=== PATIENT | male | born 1925 | race Caucasian/White ===

== ENCOUNTER 2016-11-07 11:20 | Inpatient (IN) | payer MEDICARE, OTHER ==
--- NOTE | ~2016-11-07 | IDS ---
Interim Discharge Summary [facility] [address] [place]. [address] NAME: JOELLE RENDON : [birth year] STATUS : ADM IN PAT#: [id number] AGE: 89 ADM/REG DATE : 11/07/16 MR#: [id number] REPORT SERV DATE: 11/10/16 DICTATED BY: REJI MENDEZ DATE: 11/10/16 REPORT STATUS : Draft TRANSCRIBED BY: MODNaomi DATE: 11/10/16 ADMISSION DATE: 11/07/2016 DISCHARGE DATE: DATE OF INTERIM DISCHARGE: 11/10/2016. CHIEF COMPLAINT: Weakness. CONSULTS: Dr. Gallagher for Cardiology, Dr. Lorraine MCCLENDON, and Dr. Strauss for Urology. HISTORY OF HOSPITAL STAY: An 89-year-old white male with past medical history of hypertension, hypercholesterolemia, BPH, history of esophageal stricture, status post right hip fracture on 10/19/2016 that was done at [place], history of prostate CA, presenting with weakness greater than 5 days. The patient was initially at a rehab facility for his right hip fracture. Unfortunately, the patient started having weakness. During the time of presentation, the patient had a change in mental status and could not give enough history at the time of presentation. On initial workup in the ER, the patient was found to have a creatinine of 14.5 and a BUN of 201. The patient subsequently had a CT scan of the abdomen and pelvis which shows a bilateral hydronephrosis with dilated hydroureter. The patient received a Gamboa at the time of presentation as well as IV fluids. Unfortunately, the patient also developed atrial flutter at the time of hyperkalemia of 6.0, a BUN of 201, and creatinine 14.5. Cardiology was consulted and the patient had a cardioversion in the ER. The patient subsequently went to normal sinus rhythm without any complications status post cardioversion. More importantly, the patient's renal function has greatly improved with the Gamboa in place. Urology saw the patient and felt the patient could have a stricture at the prostate level. Urology recommended keeping the Gamboa until the patient decompresses his kidneys, and we will have to keep the Gamboa for quite some time until the patient will have to be re-scanned at a later time. Questionable if the patient will have some type of obstruction post bladder decompression. DIAGNOSES UPON DISCHARGE: 1. Weakness secondary to elevated BUN and creatinine/hyperkalemia. The patient has been responding well with the Gamboa and IV fluids provided by Renal. At the time of presentation, the patient had a creatinine of 14.5, and currently the patient has creatinine 1.43. In addition, the patient's hyperkalemia from 6.0 has subsequently subsided to 3.3. 2. Hyperkalemia, much improved. 3. Acute kidney injury secondary to obstruction. The patient has greatly improved with Gamboa. Continue Gamboa at this time. Management as per Urology. 4. Bilateral hydronephrosis with ureteral dilatation because of the hyperkalemia. At this time, we will continue the Gamboa to decompress the bladder as well as the hydronephrosis. More than likely, the patient will need to keep the Gamboa post discharge, and Urology to follow up. 5. Atrial flutter with hypotension, status post cardioversion. Cardiology was consulted and has signed off. The patient did well status post cardioversion. Since the patient is n.p.o., pending dysphagia eval. The patient is to continue with the metoprolol 5 mg Interim Discharge Summary [address] [address] NAME: JOELLE RENDON : [birth year] STATUS : ADM IN [facility]#: [id number] AGE: 89 ADM/REG DATE : 11/07/16 MR#: [id number] REPORT SERV DATE: 11/10/16 DICTATED BY: REJI MENDEZ DATE: 11/10/16 REPORT STATUS : Draft TRANSCRIBED BY: REMA DATE: 11/10/16 IV q.6. 6. Dysphagia, appreciate GI input. The patient will undergo a swallow eval. Questionable if the patient will undergo dilatation versus PEG placement in the future if the patient cannot maintain any adequate intake, questionable PEG will be required. 7. Hypertension, currently well controlled. 8. Hyperlipidemia. The patient is n.p.o. We will hold for statin drugs once the patient is able to take p.o. intake. 9. Hyponatremia secondary to acute kidney injury. Management as per Renal. The patient has been changed to D5W to decrease the sodium. 10.Right hip fracture, currently asymptomatic. 11.Bronchitis. The patient is being empirically treated with Rocephin and Zithromax. The patient's WBC has been steadily improving. FBAdalid/MODL Reji Mendez MD / [id number] CC: MD Delio Headley M.D.
--- NOTE | ~2016-11-07 | CN ---
Consultation Report [facility] [address] [place]. [address] NAME: JOELLE RENDON : [birth year] STATUS : ADM IN [facility]#: [id number] AGE: 89 ADM/REG DATE : 11/07/16 MR#: [id number] REPORT SERV DATE: 11/08/16 DICTATED BY: DAY GALLAGHER DATE: 11/08/16 REPORT STATUS : Draft TRANSCRIBED BY: MODL DATE: 11/08/16 CARDIOLOGY CONSULTATION DATE OF CONSULTATION: 11/07/2016 REASON FOR CONSULTATION: Atrial flutter with rapid ventricular rate and associated hypotension. HISTORY OF PRESENT ILLNESS: The patient is an 89-year-old male with no past history of coronary artery disease who reportedly had mechanical fall in early 10/2016. He had a right hip fracture and was transferred to [facility] where reportedly he underwent open reduction internal fixation. Specifics unknown. The patient subsequently was [place] [facility]. He had 5 days of reportedly progressive weakness. Reportedly, no history of fevers, chills, dyspnea or chest pain. He currently denies chest pain or dyspnea. On presentation in the emergency department, he is found to be hypotensive and severe renal failure with atrial flutter with rapid ventricular rate. He underwent emergent cardioversion in the emergency department with conversion to sinus rhythm. In the interim, he has been seen by Nephrology with no plans for dialysis. The patient has do not resuscitate/do not intubate orders in place. PAST MEDICAL HISTORY: 1. Hypertension. 2. Hyperlipidemia. 3. Benign positional vertigo. 4. History of esophageal stricture. 5. History of prostate carcinoma. ALLERGIES: MORPHINE, LASIX, AND ADHESIVE TAPE. FAMILY HISTORY: Unobtainable from the patient. SOCIAL HISTORY: No listed drug use. No alcohol. REVIEW OF SYSTEMS: Unobtainable as the patient is unable to contribute. PHYSICAL EXAMINATION: VITALS: Pulse 102, blood pressure 91/59 at time of presentation and evaluation. Saturating 93% on 2 L nasal cannula. Weight 75 kg. GENERAL: Elderly, sedated male who is unable to contribute to history or participate in exam. HEENT: Normal. NECK: Supple, no JVD or bruit, normal carotid upstroke bilaterally, no thyromegaly. LUNGS: Clear to auscultation and percussion. No wheezes, rales or rhonchi. No use of Consultation Report [facility] [id number] [place]. [address] NAME: JOELLE RENDON : [birth year] STATUS : ADM IN PAT#: [id number] AGE: 89 ADM/REG DATE : 11/07/16 MR#: [id number] REPORT SERV DATE: 11/08/16 DICTATED BY: DAY GALLAGHER DATE: 11/08/16 REPORT STATUS : Draft TRANSCRIBED BY: MODL DATE: 11/08/16 accessory muscles. CARDIOLOGY: Regular rhythm, normal S1, S2, no thrill, no murmur, rubs or gallops, normal PMI. ABDOMEN: Bowel sounds positive, soft, nontender, and nondistended. No masses or aortic bruits. No hepatosplenomegaly or hepatojugular reflux. EXTREMITIES: Trace pitting edema. Normal pulses. No clubbing or cyanosis. SKIN: Warm and dry, no significant rash. NEUROLOGIC: Alert and oriented x 3. Appropriate mood. LABORATORIES: On presentation, sodium 139, potassium 6, chloride 101, BUN 201, creatinine 14.5, glucose 174, calcium 9.3. WBC 12.6, hemoglobin 9.9, hematocrit 30.1, platelets 478,000. DIAGNOSTIC STUDIES: EKG initially on presentation, atrial flutter with rapid ventricular rate. Status post cardioversion, sinus rhythm. Current telemetry, sinus rhythm with frequent premature atrial contractions. IMPRESSION: 1. Atrial fibrillation with rapid ventricular rate-patient is status post emergent cardioversion and currently in sinus rhythm. Blood pressure is improved since conversion to sinus rhythm. Currently on oral metoprolol. 2. Acute renal failure-multifactorial, has bilateral hydronephrosis by ultrasound and urology consultation is pending. 3. Hypotension-resolved. 4. Hyperkalemia-improved. 5. Do not resuscitate/do not intubate orders. 6. Per Nephrology notes, no plans for dialysis. In the interim, the patient's creatinine has improved to 5.44 with hydration. Potassium is improved to 4.7. We will continue beta-gilbert for now. Should the patient develop recurrent atrial flutter, we will initiate intravenous amiodarone loading. Echocardiogram is pending. Thank you for the opportunity to see the patient in consultation. We will continue to follow the patient with you. CSL/MODL Mari Gallagher M.D. / [id number] CC: Consultation Report [address] [place]. [address] NAME: JOELLE RENDON : [birth year] STATUS : ADM IN PAT#: [id number] AGE: 89 ADM/REG DATE : 11/07/16 MR#: [id number] REPORT SERV DATE: 11/08/16 DICTATED BY: DAY GALLAGHER DATE: 11/08/16 REPORT STATUS : Draft TRANSCRIBED BY: REMA DATE: 11/08/16 MD Delio Headley M.D.
--- NOTE | ~2016-11-07 | CN ---
Consultation Report [facility] [place] [id number] [facility] [place]. [address] NAME: JOELLE RENDON : [birth year] STATUS : ADM IN PAT#: [id number] AGE: 89 ADM/REG DATE : 11/07/16 MR#: [id number] REPORT SERV DATE: 11/08/16 DICTATED BY: CRAIG PETERS DATE: 11/08/16 REPORT STATUS : Draft TRANSCRIBED BY: MODL DATE: 11/08/16 CONSULTATION DATE OF CONSULTATION: 11/08/2016 HISTORY OF PRESENT ILLNESS: Joelle rendon is a pleasant 89-year-old male whom we are asked to evaluate regarding esophageal stricture. This patient has had recent problems with swallowing, as he goes to swallow he has difficulty getting it out of his mouth and chokes, this was noticed by the nurses. The patient has a history of a Schatzki's ring that was dilated by Dr. Hensley in 2005. Colonoscopy at that time showed diverticular disease. EGD also showed a hiatal hernia and gastritis. He has not been seen since. The patient presented to the emergency room with weakness. He had right hip fracture on 10/19/2016, repaired at [place]. He has a history of prostate cancer. On admission, he was found to have renal failure with hydronephrosis. He has been found to have atrial flutter with hypertension, has been seen by Cardiology. CT scan on admission showed gallstones, hydronephrosis bilaterally, distal colonic stasis, and an umbilical hernia. PAST MEDICAL HISTORY: 1. Nephrolithiasis. 2. Hyperlipidemia. 3. Prostate cancer. 4. Diverticulosis. PAST SURGICAL HISTORY: Hip repair. SOCIAL HISTORY: Lives with his . He does not smoke or drink. FAMILY HISTORY: Noncontributory. REVIEW OF SYSTEMS: All systems were reviewed and negative except for that noted in history of present illness. CURRENT MEDICATIONS: Heparin, Lopressor. ALLERGIES: IV CONTRAST, NONSTEROIDALS. PHYSICAL EXAMINATION: GENERAL: He was oriented x4, in no acute distress. VITAL SIGNS: He is afebrile. Vital signs stable. LUNGS: Clear. CARDIOVASCULAR: Revealed no S3, S4. No murmurs. ABDOMEN: Revealed active bowel sounds. Soft, nontender without mass or organomegaly. Consultation Report [place] [id number] [facility] [place]. [address] NAME: JOELLE RENDON : [birth year] STATUS : ADM IN PAT#: [id number] AGE: 89 ADM/REG DATE : 11/07/16 MR#: [id number] REPORT SERV DATE: 11/08/16 DICTATED BY: CRAIG PETERS DATE: 11/08/16 REPORT STATUS : Draft TRANSCRIBED BY: MODL DATE: 11/08/16 I reviewed the EMR as well as [facility]. LABORATORY DATA: With a comprehensive metabolic profile on admission showed a creatinine 9.49, BUN is 161, potassium 5.5. Liver enzymes were normal. Basic metabolic profile today shows a creatinine of 5.44, sodium of 150. White blood count 9300. Hemoglobin 8.8, it was 9.9 on admission, it was 12 in September. Platelet count 397,000. The hemoglobin of 12 was on 09/22/2016. IMPRESSION: 1. Oropharyngeal dysphagia with concerns for aspiration. 2. History of Schatzki's ring. RECOMMENDATION: 1. N.p.o. for now. 2. Modified barium swallow, speech pathology evaluation on Thursday. Thank you for allowing us to assist in his care. I will not see him tomorrow, but I will be available as needed. Our group will see him again on Thursday. /REMA Craig Peters M.D. / [id number] CC: MD Delio Headley M.D. Vijaykurmar Patel, M.D.
--- NOTE | ~2016-11-07 | HP ---
History And Physical [address] [address] NAME: JOELLE RENDON : [birth year] STATUS : ADM [facility]#: [id number] AGE: 89 ADM/REG DATE : 11/07/16 MR#: [id number] REPORT SERV DATE: 11/07/16 DICTATED BY: REJI MENDEZ DATE: 11/07/16 REPORT STATUS : Draft TRANSCRIBED BY: MODL DATE: 11/07/16 DATE OF ADMISSION: 11/07/2016 CHIEF COMPLAINT: Weakness x5 days plus. HISTORY OF PRESENT ILLNESS: An 89-year-old white male with past medical history of hypertension, hypercholesterolemia, benign positional vertigo, history of esophageal strictures, status post right hip fracture on 10/19/2016 that was done at [place], history of prostate CA, presenting with weakness greater than five days. History was obtained from family members at bedside. Apparently, the patient does not have any living blood relatives in the area. The family at bedside are neighbors. Apparently, the patient had a fall back on 10/19/2016 that was fixed at [place]. The patient underwent a bradly through the right femur to fix a right hip fracture. The patient was then sent to [facility] for rehab. Apparently, the patient was doing quite well over the last week and he started to decline. He had intermittent bouts where he was able to communicate and interact with the staff, but unfortunately within the last 48 hours. The patient has declined significantly. According to the family members at bedside, the patient denies any history of fevers, chills, headache, shortness of breath, cough, or sputum. Denies any abdominal pain or flank pain or hematuria. PAST MEDICAL HISTORY: As above. MEDICATIONS: The patient takes, 1. Aspirin 81 mg p.o. daily. 2. Lovenox 40 mg subcu daily. 3. Zetia 10 mg p.o. daily. 4. Hydrocodone 10 one tab p.o. q.4 hours p.r.n. 5. Cozaar 25 mg p.o. daily. 6. Antivert 12.5 mg p.o. b.i.d. 7. Protonix 40 mg p.o. at bedtime. 8. Metamucil one packet p.o. daily. 9. Flomax 0.4 mg p.o. daily. 10.Triamcinolone cream topical daily. ALLERGIES: MORPHINE, LATEX, AND ADHESIVE TAPE. SOCIAL HISTORY: Unobtainable secondary to patient's obtundation. FAMILY HISTORY: Unobtainable secondary to patient's obtundation. REVIEW OF SYSTEMS: Unobtainable secondary to the patient being obtunded. PHYSICAL EXAMINATION: VITAL SIGNS: Temperature 97.8, pulse of 118, respiratory rate of 18, BP 84/54, O2 saturation 95% on room air. History And Physical [address] [address] NAME: JOELLE RENDON : [birth year] STATUS : ADM [facility]#: [id number] AGE: 89 ADM/REG DATE : 11/07/16 MR#: [id number] REPORT SERV DATE: 11/07/16 DICTATED BY: REJI MENDEZ DATE: 11/07/16 REPORT STATUS : Draft TRANSCRIBED BY: MODL DATE: 11/07/16 HEAD AND NECK: Normocephalic, atraumatic. CARDIOVASCULAR: S1, S2. Irregularly irregular. Tachycardic. LUNGS: Good air entry. Scattered rhonchi. ABDOMEN: Soft. Positive bowel sounds. Tenderness on bilateral flank. No masses were appreciated. No organomegaly. EXTREMITIES: No clubbing, cyanosis, or edema. NEUROLOGIC: The patient is awake and arousable. No focal deficit. The patient is able to follow commands. LABS: Sodium 139, potassium 6.0, chloride 101, bicarb 19, BUN 201, creatinine 14.5, glucose 174, calcium 9.3, GFR 3, total protein 6.5, albumin 2.4, globulin 4.1, total bilirubin 0.6, alkaline phosphatase 91, ALT 12, AST 15, lipase 218. WBC 12.6, hemoglobin 9.9, hematocrit 30.4, platelets 478. CT of abdomen and pelvis shows bilateral hydronephrosis and ureteral dilatation. Left perinephric edema. No calcific stones are identified within the ureter or urinary bladder. Bladder is nondistended with a catheter in place. There is minimal nonobstructing right nephrolithiasis. Left basal pleural fluid and adjacent atelectasis. Cholelithiasis with no pericholecystic inflammation. Prominent distal colonic fecal stasis. Diverticulosis with no evidence of diverticulitis. Calcific atherosclerosis. Abdominal aortic aneurysm. Fat containing umbilical hernia. Right intertrochanteric fracture with surgical fixation. Chest x-ray shows no acute cardiopulmonary abnormality. Stable atherosclerotic changes. Thoracic aorta. ASSESSMENT/PLAN: 1. Weakness, more likely secondary to elevated BUN and creatinine. At this time, we will start the patient on half normal saline at 100 mL an hour and have a Gamboa placed. In addition, we will also have Urology for consult for further evaluation of the bilateral hydronephrosis as well as consulting Renal for further evaluation of kidney failure. 2. Severe renal failure secondary to questionable hydronephrosis. Currently, at this time patient is not in any need for emergent hemodialysis. Consult will be made to Nephrology. Due to the patient's low bicarb, we will give 1 amp of bicarb IV x1. 3. Bilateral hydronephrosis with ureteral dilatation, questionable cause of problem #1. We will have Urology on consult for further evaluation whether or not the hydronephrosis with ureteral dilatation is causing renal failure. 4. Hypertension. We will hold the patient's Diovan and start the patient on metoprolol. 5. Hyperlipidemia. Continue with Zetia. 6. Right hip fracture, currently stable. We will try to give pain meds p.r.n. if needed. 7. Gastrointestinal/deep venous thrombosis prophylaxis. We will give him Protonix and heparin. YANIRA/REMA Reji Mendez MD History And Physical [address] [address] NAME: JOELLE RENDON : [birth year] STATUS : ADM IN PAT#: [id number] AGE: 89 ADM/REG DATE : 11/07/16 MR#: [id number] REPORT SERV DATE: 11/07/16 DICTATED BY: REJI MENDEZ DATE: 11/07/16 REPORT STATUS : Draft TRANSCRIBED BY: MODL DATE: 11/07/16 / [id number] CC: MD Delio Headley M.D.
--- NOTE | ~2016-11-07 | CN ---
Consultation Report [facility] [address] [place]. [address] NAME: JOELLE ROSA : [birth year] STATUS : ADM IN PAT#: [id number] AGE: 89 ADM/REG DATE : 11/07/16 MR#: [id number] REPORT SERV DATE: 11/07/16 DICTATED BY: DATE: REPORT STATUS : Draft TRANSCRIBED BY: MODL DATE: 11/07/16 CONSULTATION DATE OF CONSULTATION: REASON FOR CONSULTATION: Acute kidney injury. HISTORY OF PRESENT ILLNESS: Mr. Rosa is an 89-year-old white male, who has a history of some mild CKD with baseline creatinine around 1.2. He was recently hospitalized at [facility] with a hip fracture that had occurred on 10/19 and apparently discharged on 10/23 to [facility] for rehabilitation after surgery. He according to friends of the family at bedside had had some urinary difficulty at [facility] and was placed on Flomax with resolutions before he was sent for their accounts. However, since he has been at rehab, he has had multiple issues, including low blood pressures and dizziness. Initially, he had a few days of good rehab and then over this past weekend, became increasingly more weak. Over the last few days, he has had significant confusion and given all this, they checked some lab work, it looks like, on 11/04 at the group home. At that time, his creatinine was already 11, his potassium was 6.9. He was finally sent to the emergency department today here at [facility], and he was found to have a creatinine of 14, BUN of 201, potassium of 6, bicarb of 19. He had a CT of the abdomen and pelvis with bilateral hydronephrosis, ureteral dilation, perinephric edema and we have been asked to see him. They state he has had very poor p.o. intake. PAST MEDICAL HISTORY: Kidney stones, syncope, shingles, chronic herpetic neuralgia, hyperlipidemia, BPH, esophagitis, esophageal stricture, bifid ureters, diverticulosis, and hip fracture. FAMILY MEDICAL HISTORY: No end-stage renal disease. SOCIAL HISTORY: He and his prior to the hip fracture were living alone. No tobacco, alcohol, or illicit drug use. ALLERGIES: CODEINE AND MEPERIDINE. MEDICATIONS: At the group home were aspirin, Cozaar, Flomax, Lovenox, meclizine, Metamucil, Protonix, Zetia, triamcinolone cream, and [place]. REVIEW OF SYSTEMS: Unable to obtain from the patient as he is currently sedated. Obtained from family as per history of present illness. PHYSICAL EXAMINATION: VITAL SIGNS: Temperature 97, blood pressure 84/56, pulse in the low 100s, respiratory rate 16, O2 saturation is 99. Consultation Report [address] [place]. [address] NAME: JOELLE ROSA : [birth year] STATUS : ADM IN PAT#: [id number] AGE: 89 ADM/REG DATE : 11/07/16 MR#: [id number] REPORT SERV DATE: 11/07/16 DICTATED BY: DATE: REPORT STATUS : Draft TRANSCRIBED BY: REMA DATE: 11/07/16 GENERAL: This is an ill-appearing, elderly white male, drowsy. Would not awaken and answer any questions. Could not assess orientation. HEENT: Normocephalic and atraumatic. Conjunctivae clear. Sclerae anicteric. Oral mucosa is very dry. LUNGS: His respirations are even and unlabored, and he does have diminished bases. HEART: Rate regular now in the low 100s. ABDOMEN: He is soft, but he has tenderness noted throughout abdomen. BACK: Could not examine given his current mental status. EXTREMITIES: No edema. SKIN: Pale, warm, dry, and intact. No unusual rashes or skin lesions. NEURO: Could not assess. : A Gamboa to bedside drainage, he has already had over 2 L urine. PERTINENT LABORATORIES AND X-RAYS: Chest x-ray, negative. Sodium 139, potassium 6, chloride 101, CO2 of 19, BUN of 201, creatinine of 14, magnesium is pending, calcium is 9.3, albumin of 2.4. LFTs normal, lipase normal. CT of the abdomen with bilateral hydro as described above. WBCs 12, H and H 9 and 30. Lactate 1. Urinalysis, no protein, 4 red blood cells. IMPRESSION: 1. Acute kidney injury. 2. Bilateral hydronephrosis. 3. Benign prostatic hyperplasia. 4. Hyperkalemia. 5. Metabolic acidosis. 6. Status post hip fracture with repair. 7. Atrial flutter. 8. Hypotension. PLAN: Maintain Gamboa. Hydration. Put him on bicarb fluid. I's and O's. Follow up potassium and albumin q.6 hours for a day. I did discuss with friends at bedside, and he is at too high risk given his hypotension and his high BUN for dialysis of disequilibrium, and hopefully with this Gamboa catheter, his kidney functions should improve on its own. We will follow along with you. Thank you for the consultation. SHALOM/REMA DANIEL Gilmore / [id number] CC: Consultation Report [address] [place]. [address] NAME: JOELLE ROSA : [birth year] STATUS : ADM IN PAT#: [id number] AGE: 89 ADM/REG DATE : 11/07/16 MR#: [id number] REPORT SERV DATE: 11/07/16 DICTATED BY: DATE: REPORT STATUS : Draft TRANSCRIBED BY: MODL DATE: 11/07/16 MD Delio Headley M.D.
--- NOTE | ~2016-11-07 | DS ---
Discharge Summary [facility] [address] [place]. [address] NAME: JOELLE RENDON : [birth year] STATUS : ADM IN PAT#: [id number] AGE: 89 ADM/REG DATE : 11/07/16 MR#: [id number] REPORT SERV DATE: 11/14/16 DICTATED BY: Nando HAYES DATE: 11/14/16 REPORT STATUS : Draft TRANSCRIBED BY: MODL DATE: 11/14/16 ADMISSION DATE: 11/07/2016 DISCHARGE DATE: 11/14/2016 DIAGNOSES AT DISCHARGE: Acute kidney injury; chronic kidney disease stage 3; obstructive uropathy; hydronephrosis/hydroureter; paroxysmal atrial fibrillation; hypokalemia, resolved; hypertension; and hyperlipidemia. CONSULT: Urology. BRIEF HOSPITAL COURSE: For initial hospital stay, please see interim summary dictated on 11/10/[address] Lambert. Continuing on with hospital course starting 11/11/2016. The patient's kidney function has returned to its baseline. He remains on Flomax. Urology has asked for his catheter to be removed with close follow with bladder ultrasounds to see if the patient is able to void. Unfortunately, the patient was not able to void spontaneously with residual of greater than 800. As a result, his Gamboa catheter was replaced and we will continue as an indwelling Gamboa for the next four weeks till he follows up with urology as an outpatient. Per family's request, arrangements have been made for him to transition to [facility]. The patient's will also be placed in this facility from home where they will be together. The patient will continue his current medications per his med reconciliation form, as well as an indwelling Gamboa and have an outpatient followup with Dr. Ling in three weeks. Significant labs at the time of this dictation; sodium 142, potassium 4.1, BUN 23, creatinine 1.46, white count is 7.2, hemoglobin is 8.2 and increasing, hematocrit 25.5, platelets 164. The patient will get ongoing physical and occupational therapy while at [facility] and as mentioned above have an outpatient followup with Dr. Deangelo Ling [facility]rology in four weeks. [facility] Nando Hayes M.D. / [id number] CC: Ravi Carvajal M.D.
--- NOTE | ~2016-11-07 | CN ---
Consultation Report [facility] [address] [place]. [address] NAME: JOELLE ROSA : [birth year] STATUS : ADM IN PAT#: [id number] AGE: 89 ADM/REG DATE : 11/07/16 MR#: [id number] REPORT SERV DATE: 11/08/16 DICTATED BY: CHONG CARO DATE: 11/08/16 REPORT STATUS : Draft TRANSCRIBED BY: MODL DATE: 11/08/16 INPATIENT CONSULTATION NOTE DATE OF CONSULTATION: 11/08/2016 REASON FOR CONSULTATION: Urinary retention with bilateral hydronephrosis. HISTORY PRESENT ILLNESS: Mr. Rosa is an 89-year-old white gentleman, who presented to the emergency department yesterday with complaints of weakness and "abnormal labs." He has had a decreased energy level recently. While in the emergency department, he was found to have a creatinine of 14.5. He had a CT of the abdomen and pelvis, which revealed bilateral hydroureteronephrosis down to the level of the bladder presumably secondary to urinary retention. According to Dr. Lambert, there was approximately 600 mL of urine drained at the time of Gamboa catheter placement. The patient's really did not notice much of a change in his urination leading up to his hospital visit. He does have a history of [place] 6 prostate cancer diagnosed in November [address] Ling and it sounds as if he was treated for a period of time with Lupron, but then stopped this after a few years. He did not have radiation or prostatectomy. I was consulted to assist with the management of this patient. PAST MEDICAL HISTORY: Prostate cancer, right femur/hip fracture, hypertension, vertigo, GERD. HOME MEDICATIONS: Aspirin, Lovenox, Zetia, hydrocodone, Cozaar, Antivert, Protonix, Metamucil, Flomax, triamcinolone cream. ALLERGIES: MORPHINE, LATEX, ADHESIVE TAPE. SOCIAL HISTORY: Does not drink, smoke, or use illicit drugs. FAMILY HISTORY: Does not have any past urologic problems. REVIEW OF SYSTEMS: Thorough 13-point review of systems was performed by me enough not noted to be positive in the history of present illness and past medical history are negative. PHYSICAL EXAMINATION: GENERAL: Weak appearing, thin male in no distress. VITAL SIGNS: Currently, temperature 97.4, pulse 74, respirations 17, blood pressure 126/73. HEENT: Normocephalic, atraumatic. Eyes are anicteric. Nares are patent. Oropharynx is clear. NECK: Supple. HEART: Regular rate and rhythm. LUNGS: Clear. ABDOMEN: Soft, nonpalpable, nontender bladder. Consultation Report [facility] [id number] [place]. [address] NAME: JOELLE ROSA : [birth year] STATUS : ADM IN PAT#: [id number] AGE: 89 ADM/REG DATE : 11/07/16 MR#: [id number] REPORT SERV DATE: 11/08/16 DICTATED BY: CHONG CARO DATE: 11/08/16 REPORT STATUS : Draft TRANSCRIBED BY: MODNaomi DATE: 11/08/16 GENITOURINARY: Indwelling Gamboa catheter draining clear yellow urine to collection container. Urine output is 3 L over 24 hours. LABS: This morning, white blood cell count 9300, hematocrit 27.1. Creatinine has gone down from 14.5 on admission to 5.44, sodium 150, chloride 116, BUN 119, carbon dioxide 18, calcium 8.3. Urinalysis: 4 red blood cells, few bacteria, otherwise unremarkable. IMAGING: CT scan as above. ASSESSMENT: 89-year-old white gentleman with urinary retention, acute renal failure, and history of prostate cancer. PLAN: My recommendation would be to leave the [place]oa catheter and continue him on Flomax. His creatinine is making a very speedy recovery. I will defer voiding trial and management of prostate cancer to Dr. Ling. We will continue to monitor over the weekend and be vigilant about pathologic postobstructive diuresis. We will continue to monitor his vitals, labs, etc. My thanks to Dr. Lambert for allowing me to participate in Mr. Rosa's care. RAC/MODL Chong Caro M.D. / [id number] CC: MD Delio Headley M.D. William Young Jr., M.D.
[~2016-11-07 11:20] MED LIST: COZ25 PO; HALF81 PO; MCZ25 PO; METAMUCIL CAN7 OZ PO; PRILOSEC OTC20 MG PO; ZETIA PO
[2016-11-07 11:48] LABS: BASOPHILS 0 %; EOSINOPHILS 0.1 %; EOSINOPHILS ABSOLUTE 0.01 10/3/uL (0.0-0.53); HEMOGLOBIN 9.9 g/dL (13.6-17.8); IMMATURE GRANULOCYTES 0.2 %; IMMATURE GRANULOCYTES ABSOLUTE 0.02 10/3/uL (0.0-0.11); LYMPHOCYTES 2.5 %; LYMPHOCYTES ABSOLUTE 0.32 10/3/uL (0.67-4.30); MEAN CORPUS HGB CONC 32.9 g/dL (32.0-36.0); MEAN CORPUSCULAR HEMOGLOB 30.7 pg (26.0-34.0); MEAN CORPUSCULAR VOLUME 93.5 fL (80-100); MEAN PLATELET VOLUME 8.7 fL (9.2-13.0); MONOCYTES 1.6 %; NEUTROPHILS 95.6 %; NEUTROPHILS ABSOLUTE 12.08 10/3/uL (2.02-8.40); RED CELL COUNT 3.22 10/6/uL (4.7-6.1)
[2016-11-07 11:51] LABS: ASCORBIC ACID (UR NOT ORDER) NEG (NEG); BILIRUBIN, URINE NEGATIVE (NEG); ER URINALYSIS TAT 0 Hrs 10 Mins; KETONE, URINE NEGATIVE (NEG); LEUKOCYTE ESTERASE(NOT OR NEG (NEG); NITRITE (URINE) NEG (NEG); WBC (NOT ORDERED) (RFLEX) 2 (0-5)
[2016-11-07 11:52] LABS: ER CBC TAT 0 Hrs 08 Mins; WHITE BLOOD CELLS 12.6 10/3/uL (4.5-10.5)
[2016-11-07 11:53] LABS: HEMATOCRIT 30.1 % (40.0-51.0); MANUAL DIFF NO %; PLATELET COUNT 478 10/3/uL (150-400)
[2016-11-07 12:03] LABS: CHLORIDE, SERUM 101 MMOL/L (96-112); SGOT(AST) 15 U/L (5-40); SGPT(ALT) 13 U/L (5-65); SODIUM, SERUM 139 MMOL/L (135-148); TOTAL BILIRUBIN 0.6 MG/DL (0-1.2); TOTAL PROTEIN 6.5 G/DL (6.0-8.5)
[2016-11-07 12:05] LABS: CO2 (CARBON DIOXIDE) 19 MMOL/L (24-34)
[2016-11-07 12:06] LABS: A/G RATIO 0.6 (0.7-1.9); ALBUMIN 2.4 G/DL (3.5-5.0); ALKALINE PHOSPHATASE 91 U/L (45-117); ER DIFF TAT 0 Hrs 22 Mins; GFR AFRICAN AMERICAN 3 ML/MIN (>=60); GFR NON AFRICAN AMERICAN 3 ML/MIN (>=60); GLOBULIN 4.1 G/DL (2.5-4.1); GLUCOSE, SERUM 174 MG/DL (60-99); LYMPHOCYTES 3 %; LYMPHOCYTES ABSOLUTE (CALC) 0.38 10/3/uL (0.67-4.30); MONOCYTES 1 %; MONOCYTES ABSOLUTE (CALC) 0.13 10/3/uL (0.21-1.20); SEGMENTED NEUTROPHIL (0) 96 %; TOTAL NUCLEATED CELLS 100
[2016-11-07 12:07] LABS: PLATELET ESTIMATE SLT INC (ADEQUATE); RBC MORPHOLOGY NORM (NORMAL)
[2016-11-07 12:23] LABS: CALCIUM, SERUM 9.3 MG/DL (8.5-10.4)
[2016-11-07 12:24] LABS: BUN (BLOOD UREA NITROGEN) 201 MG/DL (6-23)
[2016-11-07 17:17] LABS: BE (BASE EXCESS) -12.9 MEQ/L (0 +/- 2.5); CARBOXYHEMOGLOBIN 0.9 % (0-3); HEMOBLOGIN CONTENT 9.1 G/DL (14-18); INSTRUMENT SERIAL # 8087; METHEMOGLOBIN 0.4 % (0-3); O2 CONTENT 12.1 VOL% (18-24); OPERATOR ID 14335; PCO2 (CO2 TENSION) 20 MMHG (35-45); PO2 (O2 TENSION) 85 MMHG (79-93); SAMPLE Arterial; pH 7.36 (7.37-7.43)
[2016-11-07 17:18] LABS: ALLENS TEST Pos
[2016-11-07 18:14] LABS: INTERNATIONAL NORMAL RATI 1.4 UNITS (-)
[2016-11-07 18:16] LABS: PROTIME (NOT ORD) 17.4 SEC (12.0-14.5)
[2016-11-07 18:59] LABS: BASOPHILS 0 %; EOSINOPHILS 0.4 %; EOSINOPHILS ABSOLUTE 0.05 10/3/uL (0.0-0.53); HEMATOCRIT 28.5 % (40.0-51.0); HEMOGLOBIN 9.5 g/dL (13.6-17.8); IMMATURE GRANULOCYTES 0.4 %; IMMATURE GRANULOCYTES ABSOLUTE 0.05 10/3/uL (0.0-0.11); LYMPHOCYTES 5.6 %; LYMPHOCYTES ABSOLUTE 0.72 10/3/uL (0.67-4.30); MEAN CORPUS HGB CONC 33.3 g/dL (32.0-36.0); MEAN CORPUSCULAR HEMOGLOB 30.9 pg (26.0-34.0); MEAN CORPUSCULAR VOLUME 92.8 fL (80-100); MEAN PLATELET VOLUME 8.7 fL (9.2-13.0); MONOCYTES 2.3 %; MONOCYTES ABSOLUTE 0.29 10/3/uL (0.21-1.20); NEUTROPHILS 91.3 %; NEUTROPHILS ABSOLUTE 11.71 10/3/uL (2.02-8.40); PLATELET COUNT 435 10/3/uL (150-400); RBC DISTRIBUTION WIDTH 14.4 % (12.0-16.0); RED CELL COUNT 3.07 10/6/uL (4.7-6.1); WHITE BLOOD CELLS 12.8 10/3/uL (4.5-10.5)
[2016-11-07 19:03] LABS: MANUAL DIFF NO %
[2016-11-07 19:07] LABS: INTERNATIONAL NORMAL RATI 1.4 UNITS (-)
[2016-11-07 19:21] LABS: A/G RATIO 0.6 (0.7-1.9); ALBUMIN 2.1 G/DL (3.5-5.0); ALKALINE PHOSPHATASE 81 U/L (45-117); CHLORIDE, SERUM 110 MMOL/L (96-112); CO2 (CARBON DIOXIDE) 20 MMOL/L (24-34); GLOBULIN 3.7 G/DL (2.5-4.1); PHOSPHORUS, SERUM 7.5 MG/DL (2.5-4.5); POTASSIUM, SERUM 5.5 MMOL/L (3.5-5.3); SGOT(AST) 15 U/L (5-40); SGPT(ALT) 12 U/L (5-65); TOTAL PROTEIN 5.8 G/DL (6.0-8.5)
[2016-11-07 19:22] LABS: CREATININE 9.49 MG/DL (0.70-1.30); GFR AFRICAN AMERICAN 5 ML/MIN (>=60); GFR NON AFRICAN AMERICAN 4 ML/MIN (>=60); SODIUM, SERUM 146 MMOL/L (135-148)
[2016-11-07 19:23] LABS: CALCIUM, SERUM 8.2 MG/DL (8.5-10.4); GLUCOSE, SERUM 93 MG/DL (60-99); TOTAL BILIRUBIN 1.1 MG/DL (0-1.2)
[2016-11-07 19:45] LABS: BUN (BLOOD UREA NITROGEN) 161 MG/DL (6-23)
[2016-11-08 04:54] LABS: BASOPHILS 0 %; EOSINOPHILS 1.1 %; HEMATOCRIT 27.1 % (40.0-51.0); HEMOGLOBIN 8.8 g/dL (13.6-17.8); IMMATURE GRANULOCYTES 0.4 %; IMMATURE GRANULOCYTES ABSOLUTE 0.04 10/3/uL (0.0-0.11); LYMPHOCYTES 4.9 %; LYMPHOCYTES ABSOLUTE 0.45 10/3/uL (0.67-4.30); MEAN CORPUS HGB CONC 32.5 g/dL (32.0-36.0); MEAN CORPUSCULAR HEMOGLOB 30.6 pg (26.0-34.0); MEAN CORPUSCULAR VOLUME 94.1 fL (80-100); MEAN PLATELET VOLUME 8.7 fL (9.2-13.0); MONOCYTES 5.5 %; MONOCYTES ABSOLUTE 0.51 10/3/uL (0.21-1.20); NEUTROPHILS 88.1 %; NEUTROPHILS ABSOLUTE 8.17 10/3/uL (2.02-8.40); PLATELET COUNT 397 10/3/uL (150-400); RBC DISTRIBUTION WIDTH 14.4 % (12.0-16.0); RED CELL COUNT 2.88 10/6/uL (4.7-6.1); WHITE BLOOD CELLS 9.3 10/3/uL (4.5-10.5)
[2016-11-08 04:59] LABS: MANUAL DIFF NO %
[2016-11-08 05:10] LABS: ALBUMIN 2.4 G/DL (3.5-5.0); CALCIUM, SERUM 8.3 MG/DL (8.5-10.4); CHLORIDE, SERUM 116 MMOL/L (96-112); CO2 (CARBON DIOXIDE) 18 MMOL/L (24-34); GLUCOSE, SERUM 89 MG/DL (60-99); POTASSIUM, SERUM 4.7 MMOL/L (3.5-5.3); SODIUM, SERUM 150 MMOL/L (135-148)
[2016-11-08 05:11] LABS: BUN (BLOOD UREA NITROGEN) 119 MG/DL (6-23); CREATININE 5.44 MG/DL (0.70-1.30); GFR AFRICAN AMERICAN 10 ML/MIN (>=60); GFR NON AFRICAN AMERICAN 9 ML/MIN (>=60); PHOSPHORUS, SERUM 5.3 MG/DL (2.5-4.5)
[2016-11-08] MEDS ORDERED: ASAB PO (09:14)
[2016-11-08] MEDS ORDERED: COZ25 PO (09:15)
[2016-11-08] MEDS ORDERED: LOVENOX40 SC (09:15)
[2016-11-08] MEDS ORDERED: NORCO1 TAB PO (09:15)
[2016-11-08] MEDS ORDERED: ZETIA PO (09:15)
[2016-11-08] MEDS ORDERED: MCZ125 PO (09:15)
[2016-11-08] MEDS ORDERED: PROTONIX PO (09:16)
[2016-11-08] MEDS ORDERED: TRIAMCINOLONE C80 GM TOP (09:16)
[2016-11-08] MEDS ORDERED: METPAKSF PO (09:16)
[2016-11-08] MEDS ORDERED: FLOMAX4 PO (09:16)
[2016-11-09 05:02] LABS: BASOPHILS 0.2 %; BASOPHILS ABSOLUTE 0.01 10/3/uL (0.0-0.16); EOSINOPHILS 2.6 %; EOSINOPHILS ABSOLUTE 0.17 10/3/uL (0.0-0.53); HEMATOCRIT 25.4 % (40.0-51.0); HEMOGLOBIN 8.2 g/dL (13.6-17.8); IMMATURE GRANULOCYTES 0.2 %; IMMATURE GRANULOCYTES ABSOLUTE 0.01 10/3/uL (0.0-0.11); LYMPHOCYTES 8.3 %; LYMPHOCYTES ABSOLUTE 0.54 10/3/uL (0.67-4.30); MEAN CORPUS HGB CONC 32.3 g/dL (32.0-36.0); MEAN CORPUSCULAR HEMOGLOB 30.7 pg (26.0-34.0); MEAN CORPUSCULAR VOLUME 95.1 fL (80-100); MEAN PLATELET VOLUME 8.6 fL (9.2-13.0); MONOCYTES 6.6 %; MONOCYTES ABSOLUTE 0.43 10/3/uL (0.21-1.20); NEUTROPHILS 82.1 %; NEUTROPHILS ABSOLUTE 5.31 10/3/uL (2.02-8.40); PLATELET COUNT 316 10/3/uL (150-400); RBC DISTRIBUTION WIDTH 14.3 % (12.0-16.0); RED CELL COUNT 2.67 10/6/uL (4.7-6.1); WHITE BLOOD CELLS 6.5 10/3/uL (4.5-10.5)
[2016-11-09 05:05] LABS: MANUAL DIFF NO %
[2016-11-09 05:13] LABS: ALBUMIN 2.6 G/DL (3.5-5.0); CHLORIDE, SERUM 116 MMOL/L (96-112); SODIUM, SERUM 154 MMOL/L (135-148)
[2016-11-09 05:14] LABS: BUN (BLOOD UREA NITROGEN) 57 MG/DL (6-23); CO2 (CARBON DIOXIDE) 28 MMOL/L (24-34); CREATININE 1.72 MG/DL (0.70-1.30); GFR AFRICAN AMERICAN 40 ML/MIN (>=60); GFR NON AFRICAN AMERICAN 34 ML/MIN (>=60); GLUCOSE, SERUM 126 MG/DL (60-99); PHOSPHORUS, SERUM 2.6 MG/DL (2.5-4.5); POTASSIUM, SERUM 3.6 MMOL/L (3.5-5.3)
[2016-11-09 12:11] LABS: ALBUMIN 2.7 G/DL (3.5-5.0); CALCIUM, SERUM 7.9 MG/DL (8.5-10.4); CHLORIDE, SERUM 115 MMOL/L (96-112); CREATININE 1.56 MG/DL (0.70-1.30); GFR AFRICAN AMERICAN 45 ML/MIN (>=60); GFR NON AFRICAN AMERICAN 39 ML/MIN (>=60); GLUCOSE, SERUM 125 MG/DL (60-99); PHOSPHORUS, SERUM 2.1 MG/DL (2.5-4.5); POTASSIUM, SERUM 3.6 MMOL/L (3.5-5.3); SODIUM, SERUM 154 MMOL/L (135-148)
[2016-11-09 12:12] LABS: BUN (BLOOD UREA NITROGEN) 47 MG/DL (6-23); CO2 (CARBON DIOXIDE) 33 MMOL/L (24-34)
[2016-11-09 17:45] LABS: ASCORBIC ACID (UR NOT ORDER) NEG (NEG); BILIRUBIN, URINE NEGATIVE (NEG); KETONE, URINE NEGATIVE (NEG); LEUKOCYTE ESTERASE(NOT OR LARGE (NEG); WBC (NOT ORDERED) (RFLEX) 86 (0-5)
[2016-11-09 20:33] LABS: ALBUMIN 2.9 G/DL (3.5-5.0); BUN (BLOOD UREA NITROGEN) 38 MG/DL (6-23); CALCIUM, SERUM 7.6 MG/DL (8.5-10.4); CHLORIDE, SERUM 110 MMOL/L (96-112); CO2 (CARBON DIOXIDE) 35 MMOL/L (24-34); CREATININE 1.48 MG/DL (0.70-1.30); GFR AFRICAN AMERICAN 48 ML/MIN (>=60); GFR NON AFRICAN AMERICAN 41 ML/MIN (>=60); GLUCOSE, SERUM 156 MG/DL (60-99); PHOSPHORUS, SERUM 1.9 MG/DL (2.5-4.5); POTASSIUM, SERUM 3.2 MMOL/L (3.5-5.3); SODIUM, SERUM 153 MMOL/L (135-148)
[2016-11-10 05:43] LABS: ALBUMIN 2.9 G/DL (3.5-5.0); CALCIUM, SERUM 7.8 MG/DL (8.5-10.4); CHLORIDE, SERUM 110 MMOL/L (96-112); CO2 (CARBON DIOXIDE) 35 MMOL/L (24-34); CREATININE 1.43 MG/DL (0.70-1.30); GFR AFRICAN AMERICAN 50 ML/MIN (>=60); GFR NON AFRICAN AMERICAN 43 ML/MIN (>=60); GLUCOSE, SERUM 151 MG/DL (60-99); POTASSIUM, SERUM 3.3 MMOL/L (3.5-5.3); SODIUM, SERUM 153 MMOL/L (135-148)
[2016-11-10 05:47] LABS: BUN (BLOOD UREA NITROGEN) 29 MG/DL (6-23); PHOSPHORUS, SERUM 2.6 MG/DL (2.5-4.5)
[2016-11-10 12:50] LABS: BUN (BLOOD UREA NITROGEN) 28 MG/DL (6-23); CALCIUM, SERUM 7.8 MG/DL (8.5-10.4); CHLORIDE, SERUM 106 MMOL/L (96-112); CO2 (CARBON DIOXIDE) 35 MMOL/L (24-34); CREATININE 1.47 MG/DL (0.70-1.30); GFR AFRICAN AMERICAN 48 ML/MIN (>=60); GFR NON AFRICAN AMERICAN 42 ML/MIN (>=60); GLUCOSE, SERUM 121 MG/DL (60-99); PHOSPHORUS, SERUM 2.3 MG/DL (2.5-4.5); POTASSIUM, SERUM 3.2 MMOL/L (3.5-5.3); SODIUM, SERUM 150 MMOL/L (135-148)
[2016-11-10 16:16] LABS: BUN (BLOOD UREA NITROGEN) 26 MG/DL (6-23); CHLORIDE, SERUM 107 MMOL/L (96-112); CO2 (CARBON DIOXIDE) 34 MMOL/L (24-34); CREATININE 1.42 MG/DL (0.70-1.30); GFR AFRICAN AMERICAN 50 ML/MIN (>=60); GFR NON AFRICAN AMERICAN 43 ML/MIN (>=60); GLUCOSE, SERUM 120 MG/DL (60-99); POTASSIUM, SERUM 3.5 MMOL/L (3.5-5.3); SODIUM, SERUM 149 MMOL/L (135-148)
[2016-11-10 21:21] LABS: BUN (BLOOD UREA NITROGEN) 25 MG/DL (6-23); CALCIUM, SERUM 7.8 MG/DL (8.5-10.4); CHLORIDE, SERUM 106 MMOL/L (96-112); CO2 (CARBON DIOXIDE) 36 MMOL/L (24-34); CREATININE 1.57 MG/DL (0.70-1.30); GFR AFRICAN AMERICAN 45 ML/MIN (>=60); GFR NON AFRICAN AMERICAN 39 ML/MIN (>=60); GLUCOSE, SERUM 121 MG/DL (60-99); PHOSPHORUS, SERUM 2.4 MG/DL (2.5-4.5); POTASSIUM, SERUM 3.4 MMOL/L (3.5-5.3); SODIUM, SERUM 149 MMOL/L (135-148)
[2016-11-11 04:40] LABS: BASOPHILS 0 %; EOSINOPHILS 2.8 %; EOSINOPHILS ABSOLUTE 0.17 10/3/uL (0.0-0.53); HEMATOCRIT 24.5 % (40.0-51.0); HEMOGLOBIN 7.5 g/dL (13.6-17.8); IMMATURE GRANULOCYTES 0.3 %; IMMATURE GRANULOCYTES ABSOLUTE 0.02 10/3/uL (0.0-0.11); LYMPHOCYTES 11.7 %; MEAN CORPUSCULAR HEMOGLOB 30.2 pg (26.0-34.0); MONOCYTES 5.8 %; MONOCYTES ABSOLUTE 0.35 10/3/uL (0.21-1.20); NEUTROPHILS 79.4 %; NEUTROPHILS ABSOLUTE 4.75 10/3/uL (2.02-8.40); RBC DISTRIBUTION WIDTH 13.9 % (12.0-16.0); RED CELL COUNT 2.48 10/6/uL (4.7-6.1)
[2016-11-11 04:42] LABS: MANUAL DIFF NO %; MEAN CORPUS HGB CONC 30.6 g/dL (32.0-36.0); MEAN CORPUSCULAR VOLUME 98.8 fL (80-100); PLATELET COUNT 221 10/3/uL (150-400)
[2016-11-11 04:50] LABS: ALBUMIN 3.1 G/DL (3.5-5.0); BUN (BLOOD UREA NITROGEN) 23 MG/DL (6-23); CALCIUM, SERUM 8.1 MG/DL (8.5-10.4); CHLORIDE, SERUM 106 MMOL/L (96-112); CREATININE 1.46 MG/DL (0.70-1.30); GFR AFRICAN AMERICAN 49 ML/MIN (>=60); GFR NON AFRICAN AMERICAN 42 ML/MIN (>=60); GLUCOSE, SERUM 112 MG/DL (60-99); PHOSPHORUS, SERUM 2.5 MG/DL (2.5-4.5); POTASSIUM, SERUM 3.1 MMOL/L (3.5-5.3); SODIUM, SERUM 146 MMOL/L (135-148)
[2016-11-11 04:54] LABS: CO2 (CARBON DIOXIDE) 31 MMOL/L (24-34)
[2016-11-11 13:08] LABS: ALBUMIN 3.2 G/DL (3.5-5.0); BUN (BLOOD UREA NITROGEN) 22 MG/DL (6-23); CALCIUM, SERUM 8.2 MG/DL (8.5-10.4); CHLORIDE, SERUM 107 MMOL/L (96-112); CO2 (CARBON DIOXIDE) 32 MMOL/L (24-34); CREATININE 1.67 MG/DL (0.70-1.30); GFR AFRICAN AMERICAN 41 ML/MIN (>=60); GFR NON AFRICAN AMERICAN 36 ML/MIN (>=60); GLUCOSE, SERUM 115 MG/DL (60-99); PHOSPHORUS, SERUM 1.8 MG/DL (2.5-4.5); POTASSIUM, SERUM 3.6 MMOL/L (3.5-5.3); SODIUM, SERUM 146 MMOL/L (135-148)
[2016-11-11 23:10] LABS: ALBUMIN 3.2 G/DL (3.5-5.0); BUN (BLOOD UREA NITROGEN) 22 MG/DL (6-23); CALCIUM, SERUM 7.8 MG/DL (8.5-10.4); CHLORIDE, SERUM 104 MMOL/L (96-112); CO2 (CARBON DIOXIDE) 32 MMOL/L (24-34); CREATININE 1.58 MG/DL (0.70-1.30); GFR AFRICAN AMERICAN 44 ML/MIN (>=60); GFR NON AFRICAN AMERICAN 38 ML/MIN (>=60); GLUCOSE, SERUM 107 MG/DL (60-99); PHOSPHORUS, SERUM 2.3 MG/DL (2.5-4.5); POTASSIUM, SERUM 3.6 MMOL/L (3.5-5.3); SODIUM, SERUM 144 MMOL/L (135-148)
[2016-11-12 05:00] LABS: BASOPHILS 0 %; EOSINOPHILS 2.3 %; EOSINOPHILS ABSOLUTE 0.17 10/3/uL (0.0-0.53); HEMATOCRIT 24.7 % (40.0-51.0); HEMOGLOBIN 7.8 g/dL (13.6-17.8); IMMATURE GRANULOCYTES 0.4 %; IMMATURE GRANULOCYTES ABSOLUTE 0.03 10/3/uL (0.0-0.11); LYMPHOCYTES 11.5 %; LYMPHOCYTES ABSOLUTE 0.84 10/3/uL (0.67-4.30); MEAN CORPUS HGB CONC 31.6 g/dL (32.0-36.0); MEAN CORPUSCULAR HEMOGLOB 30.5 pg (26.0-34.0); MEAN CORPUSCULAR VOLUME 96.5 fL (80-100); MEAN PLATELET VOLUME 9.3 fL (9.2-13.0); MONOCYTES 4.6 %; MONOCYTES ABSOLUTE 0.34 10/3/uL (0.21-1.20); NEUTROPHILS 81.2 %; NEUTROPHILS ABSOLUTE 5.94 10/3/uL (2.02-8.40); PLATELET COUNT 209 10/3/uL (150-400); RBC DISTRIBUTION WIDTH 13.7 % (12.0-16.0); RED CELL COUNT 2.56 10/6/uL (4.7-6.1); WHITE BLOOD CELLS 7.3 10/3/uL (4.5-10.5)
[2016-11-12 05:03] LABS: MANUAL DIFF NO %
[2016-11-12 05:13] LABS: BUN (BLOOD UREA NITROGEN) 21 MG/DL (6-23); CALCIUM, SERUM 7.9 MG/DL (8.5-10.4); CHLORIDE, SERUM 103 MMOL/L (96-112); CO2 (CARBON DIOXIDE) 31 MMOL/L (24-34); CREATININE 1.59 MG/DL (0.70-1.30); GFR AFRICAN AMERICAN 44 ML/MIN (>=60); GFR NON AFRICAN AMERICAN 38 ML/MIN (>=60); GLUCOSE, SERUM 104 MG/DL (60-99); PHOSPHORUS, SERUM 2.2 MG/DL (2.5-4.5); POTASSIUM, SERUM 3.3 MMOL/L (3.5-5.3); SODIUM, SERUM 143 MMOL/L (135-148); TROPONIN I 0.04 NG/ML (<0.05)
[2016-11-12 15:13] LABS: ALBUMIN 3.3 G/DL (3.5-5.0); BUN (BLOOD UREA NITROGEN) 22 MG/DL (6-23); CALCIUM, SERUM 8.4 MG/DL (8.5-10.4); CHLORIDE, SERUM 104 MMOL/L (96-112); CO2 (CARBON DIOXIDE) 30 MMOL/L (24-34); CREATININE 1.59 MG/DL (0.70-1.30); GFR AFRICAN AMERICAN 44 ML/MIN (>=60); GFR NON AFRICAN AMERICAN 38 ML/MIN (>=60); GLUCOSE, SERUM 96 MG/DL (60-99); PHOSPHORUS, SERUM 2.5 MG/DL (2.5-4.5); SODIUM, SERUM 143 MMOL/L (135-148); TROPONIN I 0.03 NG/ML (<0.05)
[2016-11-12 21:03] LABS: BUN (BLOOD UREA NITROGEN) 22 MG/DL (6-23); CALCIUM, SERUM 7.7 MG/DL (8.5-10.4); CHLORIDE, SERUM 104 MMOL/L (96-112); CO2 (CARBON DIOXIDE) 28 MMOL/L (24-34); CREATININE 1.51 MG/DL (0.70-1.30); GFR AFRICAN AMERICAN 47 ML/MIN (>=60); GFR NON AFRICAN AMERICAN 40 ML/MIN (>=60); GLUCOSE, SERUM 96 MG/DL (60-99); PHOSPHORUS, SERUM 2.7 MG/DL (2.5-4.5); POTASSIUM, SERUM 3.6 MMOL/L (3.5-5.3); SODIUM, SERUM 142 MMOL/L (135-148)
[2016-11-13 06:27] LABS: BASOPHILS 0.2 %; BASOPHILS ABSOLUTE 0.01 10/3/uL (0.0-0.16); EOSINOPHILS ABSOLUTE 0.13 10/3/uL (0.0-0.53); HEMATOCRIT 23.8 % (40.0-51.0); HEMOGLOBIN 7.9 g/dL (13.6-17.8); IMMATURE GRANULOCYTES 0.5 %; IMMATURE GRANULOCYTES ABSOLUTE 0.03 10/3/uL (0.0-0.11); LYMPHOCYTES 12.5 %; LYMPHOCYTES ABSOLUTE 0.83 10/3/uL (0.67-4.30); MEAN CORPUSCULAR HEMOGLOB 31.1 pg (26.0-34.0); MEAN CORPUSCULAR VOLUME 93.7 fL (80-100); MEAN PLATELET VOLUME 9.3 fL (9.2-13.0); MONOCYTES 5.7 %; MONOCYTES ABSOLUTE 0.38 10/3/uL (0.21-1.20); NEUTROPHILS 79.1 %; NEUTROPHILS ABSOLUTE 5.26 10/3/uL (2.02-8.40); PLATELET COUNT 175 10/3/uL (150-400); RBC DISTRIBUTION WIDTH 13.8 % (12.0-16.0); RED CELL COUNT 2.54 10/6/uL (4.7-6.1); WHITE BLOOD CELLS 6.6 10/3/uL (4.5-10.5)
[2016-11-13 06:28] LABS: MANUAL DIFF NO %; MEAN CORPUS HGB CONC 33.2 g/dL (32.0-36.0)
[2016-11-13 06:38] LABS: ALBUMIN 2.8 G/DL (3.5-5.0); BUN (BLOOD UREA NITROGEN) 22 MG/DL (6-23); CALCIUM, SERUM 7.9 MG/DL (8.5-10.4); CHLORIDE, SERUM 105 MMOL/L (96-112); CO2 (CARBON DIOXIDE) 27 MMOL/L (24-34); CREATININE 1.47 MG/DL (0.70-1.30); GFR AFRICAN AMERICAN 48 ML/MIN (>=60); GFR NON AFRICAN AMERICAN 42 ML/MIN (>=60); GLUCOSE, SERUM 87 MG/DL (60-99); PHOSPHORUS, SERUM 2.5 MG/DL (2.5-4.5); POTASSIUM, SERUM 3.5 MMOL/L (3.5-5.3); SODIUM, SERUM 142 MMOL/L (135-148)
[2016-11-13 13:32] LABS: ALBUMIN 2.9 G/DL (3.5-5.0); BUN (BLOOD UREA NITROGEN) 22 MG/DL (6-23); CHLORIDE, SERUM 103 MMOL/L (96-112); CO2 (CARBON DIOXIDE) 27 MMOL/L (24-34); CREATININE 1.51 MG/DL (0.70-1.30); GFR AFRICAN AMERICAN 47 ML/MIN (>=60); GFR NON AFRICAN AMERICAN 40 ML/MIN (>=60); GLUCOSE, SERUM 95 MG/DL (60-99); POTASSIUM, SERUM 3.6 MMOL/L (3.5-5.3); SODIUM, SERUM 140 MMOL/L (135-148)
[2016-11-13 20:36] LABS: BUN (BLOOD UREA NITROGEN) 23 MG/DL (6-23); CHLORIDE, SERUM 103 MMOL/L (96-112); CO2 (CARBON DIOXIDE) 27 MMOL/L (24-34); CREATININE 1.51 MG/DL (0.70-1.30); GFR AFRICAN AMERICAN 47 ML/MIN (>=60); GFR NON AFRICAN AMERICAN 40 ML/MIN (>=60); GLUCOSE, SERUM 104 MG/DL (60-99); PHOSPHORUS, SERUM 1.8 MG/DL (2.5-4.5); POTASSIUM, SERUM 3.4 MMOL/L (3.5-5.3); SODIUM, SERUM 138 MMOL/L (135-148)
[2016-11-14 03:29] LABS: BASOPHILS 0 %; EOSINOPHILS 2.9 %; EOSINOPHILS ABSOLUTE 0.21 10/3/uL (0.0-0.53); HEMATOCRIT 25.5 % (40.0-51.0); HEMOGLOBIN 8.2 g/dL (13.6-17.8); IMMATURE GRANULOCYTES 0.1 %; IMMATURE GRANULOCYTES ABSOLUTE 0.01 10/3/uL (0.0-0.11); LYMPHOCYTES 10.2 %; LYMPHOCYTES ABSOLUTE 0.73 10/3/uL (0.67-4.30); MANUAL DIFF NO %; MEAN CORPUS HGB CONC 32.2 g/dL (32.0-36.0); MEAN CORPUSCULAR HEMOGLOB 30.4 pg (26.0-34.0); MEAN CORPUSCULAR VOLUME 94.4 fL (80-100); MEAN PLATELET VOLUME 9.4 fL (9.2-13.0); MONOCYTES 6.2 %; MONOCYTES ABSOLUTE 0.44 10/3/uL (0.21-1.20); NEUTROPHILS 80.6 %; NEUTROPHILS ABSOLUTE 5.76 10/3/uL (2.02-8.40); PLATELET COUNT 164 10/3/uL (150-400); RBC DISTRIBUTION WIDTH 13.7 % (12.0-16.0); WHITE BLOOD CELLS 7.2 10/3/uL (4.5-10.5)
[2016-11-14 03:43] LABS: BUN (BLOOD UREA NITROGEN) 23 MG/DL (6-23); CALCIUM, SERUM 7.7 MG/DL (8.5-10.4); CHLORIDE, SERUM 106 MMOL/L (96-112); CO2 (CARBON DIOXIDE) 26 MMOL/L (24-34); CREATININE 1.46 MG/DL (0.70-1.30); GFR AFRICAN AMERICAN 49 ML/MIN (>=60); GFR NON AFRICAN AMERICAN 42 ML/MIN (>=60); GLUCOSE, SERUM 92 MG/DL (60-99); POTASSIUM, SERUM 4.1 MMOL/L (3.5-5.3); SODIUM, SERUM 142 MMOL/L (135-148)
[2017-02-17] MEDS ORDERED: LOP25 PO (11:30)
[2017-02-17] MEDS ORDERED: BISR PR (11:32)
[2017-02-17] MEDS ORDERED: ENEMA PR (11:34)
[2017-02-17] MEDS ORDERED: MOMUD PO (11:34)
[2017-05-10] MEDS ORDERED: ASAB PO (14:49)
[2017-05-10] MEDS ORDERED: PROTONIX PO (14:50)
[2017-05-10] MEDS ORDERED: FLOMAX4 PO (14:50)
[2017-05-10] MEDS ORDERED: LOP25 PO (14:50)
[2017-05-10] MEDS ORDERED: TRIAMCINOLONE C80 GM TOP (14:50)
[2017-05-10] MEDS ORDERED: METPAKSF PO (14:50)
[2017-05-10] MEDS ORDERED: NORCO1 TAB PO (14:53)
== END 2016-11-14 16:29 | DRG 682 ==
LOC: ER 11:20 → IMCU 16:14 → 2SO 11-11 17:32
PROVIDERS: Emergency Medicine; Hospitalist; Internal Medicine; Internal Medicine Nephrology; Nurse Practitioner; Nurse Practitioner Family
DX: N17.9 Acute kidney failure, unspecified (principal); S72.001A Fracture of unspecified part of neck of right femur, initial encounter for closed fracture; E87.2 Acidosis; I95.9 Hypotension, unspecified; I48.92 Unspecified atrial flutter; E87.1 Hypo-osmolality and hyponatremia; E87.5 Hyperkalemia; I48.0 Paroxysmal atrial fibrillation; N13.2 Hydronephrosis with renal and ureteral calculous obstruction; N40.1 Benign prostatic hyperplasia with lower urinary tract symptoms; N13.30 Unspecified hydronephrosis; R13.12 Dysphagia, oropharyngeal phase; K59.00 Constipation, unspecified; K22.2 Esophageal obstruction; N18.3 Chronic kidney disease, stage 3 (moderate); Z66 Do not resuscitate; I12.9 Hypertensive chronic kidney disease with stage 1 through stage 4 chronic kidney disease, or unspecified chronic kidney disease; J40 Bronchitis, not specified as acute or chronic; K57.90 Diverticulosis of intestine, part unspecified, without perforation or abscess without bleeding; K42.9 Umbilical hernia without obstruction or gangrene; E78.00 Pure hypercholesterolemia, unspecified; E87.6 Hypokalemia; Z79.01 Long term (current) use of anticoagulants
CPT/HCPCS: 36600; 71010; 74176; 74230; 80048; 80053; 80069; 81001; 82805; 83605; 83690; 83735; 84100; 84132; 84484; 85025; 85610; 87040; 87086; 87641; 92611-GN; 93005; 96361; 96374; 96375; 97162-GP; 97166-GO; 97530-GP; 99291; A9270-GY; C8929; G8978-CL-GP; G8979-CJ-GP; G8987-CK-GO; G8988-CJ-GO; G8996-CJ-GN; G8997-CJ-GN; G8998-CJ-GN; J0282; J0456; J0610; J2405; P9047; Q9957